=== PATIENT | female | born 1955 | race Two or more races ===

== ENCOUNTER 2018-05-16 10:49 | Inpatient (IN) | payer MEDICARE ==
--- NOTE | 2018-05-16 11:38 | ED Physician Chart ---
ED Chief Complaint/HPI - Patient Information Date Seen:: 05/16/18 Time Seen:: 11:20 Chief Complaint:: right hip and bilateral leg pain History of Present Illness:: Patient's had right hip and bilateral leg pain for several years. Pain is increased the last 3 months. Patient's been using a walker for last 1-1/2 years. No recent trauma patient is legally blind. Patient's on dialysis Oelqnd-Hgpmruabk-Ayrxid at [facility]. Allergies:: Allergies Allergy/AdvReac Type Severity Reaction Status Date / Time No Known Allergies Allergy Verified 05/16/18 11:13 Vitals:: Vital Signs - 8 hr 05/16/18 11:18 Temp 97.4 F HR 83 RR 18 BP 170/71 O2 Sat % 99 Historian:: Patient, Family Member Review:: Nurse's Note Reviewed ED Review of Systems - Review of Systems General/Constitutional: No fever, No chills Skin: No skin lesions Head: No headache Eyes: No loss of vision ENT: No earache Neck: No neck pain, No swelling Cardio Vascular: No chest pain, No palpitations Pulmonary: No SOB, No cough, No sputum GI: No nausea, No vomiting, No diarrhea G/U: No dysuria, No frequency, No hematuria Musculoskeletal: Bone or joint pain Endocrine: No polyuria, No polydipsia Psychiatric: No prior psych history Hematopoietic: No bruising Allergic/Immuno: No urticaria, No angioedema Neurological: No syncope ED Past Medical History - Past Medical History Past Medical History: HTN, DM, Arthritis, Other (diabetic neuropathy; diabetic retinopathy) Family History: Heart disease, Diabetes Melitus, HTN Social History: Non Smoker, No Alcohol Surgical History: other (dialysis shunt; craniotomy secondary to trauma; diabetic retinopathy both eyes) Psychiatricy History: None Medication: Reviewed Family Medical History - Family Member Mother History Unknown: Yes Ethnicity: Living Status: ED Physical Exam - Physical Examination General/Constitutional: Well-developed, well-nourished, Alert, No distress Head: Atraumatic Eyes: Lids, conjuctiva normal Other Eyes comments:: Both eyes status post surgical changes Skin: Nl inspection, No rash, No skin lesions, No ecchymosis ENMT: External ears, nose nl, Nasal exam nl, Lips, teeth, gums nl Neck: No nuchal rigidity Respiratory: Nl effort/Exclusion, Clear to Auscultation, No Wheeze/Rhonchi/Rales Cardio Vascular: RRR, No murmur, gallop, rubs, NL S1 S2 GI: No tenderness/rebounding/guarding, No organomegaly, No hernia, Normal BS's, Nondistended, No mass/bruits : No CVA tenderness Other Extremities comments:: Flexion abduction external rotation right hip causes right groin and right lateral hip pain Neuro/Psych: No focal deficits ED Labs/Radiology/EKG Results - Lab Results Results: Laboratory Results - last 24 hr 05/16/18 05/16/18 11:43 11:43 WBC 6.0 RBC 3.62 L Hgb 11.8 L Hct 36.2 L MCV 99.8 MCH 32.5 H MCHC Differential 32.6 RDW 17.6 Plt Count 123 L MPV 10.7 Neutrophils % 71.8 Lymphocytes % 17.6 L Monocytes % 7.0 Eosinophils % 2.4 Basophils % 1.2 Sodium 133 L Potassium 5.6 H Chloride 98 Carbon Dioxide 27.7 Anion Gap 12.9 BUN 56 H Creatinine 3.6 H Est GFR ( Amer) 16.4 Est GFR (Non-Af Amer) 13.6 BUN/Creatinine Ratio 15.6 Glucose 307 H Calcium 9.3 - Radiology Results Results: Right hip x-ray showed severe arthritis - EKG Interpretations Rate & Rhythm: normal sinus rhythm with a rate of 83 [place]: normal axis Comments:: Flat T-wave in lead aVL ED Septic Shock - . Is Septic Shock (SBP<90, OR Lactate>4 mmol\L) present?: No - <6hrs of presentation: Vital Signs: Vital Signs - 8 hr 05/16/18 11:18 Temp 97.4 F HR 83 RR 18 BP 170/71 O2 Sat % 99 ED Reassessment (Disposition) - Reassessment Reassessment Condition:: Unchanged - Diagnosis Diagnosis:: Intractable pain right hip; arthritis right hip; diabetes; hyperglycemia; diabetic neuropathy; renal failure on dialysis - Patient Disposition Admitted to:: Telemetry Spoke to:: Radu Schmitt Admitting Medical Physician:: Radu Schmitt Condition at Disposition:: Stable, Unchanged
[2018-05-16 11:51] LABS: % BASOPHILS 1.2 % (0.0-2.0); % EOSINOPHILS 2.4 % (0.0-5.0); % LYMPHOCYTES 17.6 % (20.0-50.0); % NEUTROPHILS 71.8 % (40.0-80.0); BASOPHILE ABSOLUTE 0.1 Th/cumm (0-0.2); EOSINOPHILE ABSOLUTE 0.1 Th/cmm (0.1-0.4); HEMATOCRIT 36.2 % (41.0-60); HEMOGLOBIN 11.8 gm/dL (12-16); LYMPHOCYTE ABSOLUTE 1.1 Th/cmm (1.5-3.0); MEAN CELL VOLUME 99.8 fl (81-100); MEAN CORPUSCULAR HEMOGLOBIN 32.5 pg (27.0-31.0); MEAN CORPUSCULAR HGB CONC 32.6 pg (28.0-36.0); MEAN PLATELET VOLUME 10.7 fl; MONOCYTE ABSOLUTE 0.4 Th/cmm (0.3-1.0); NEUTROPHILE ABSOLUTE 4.3 Th/cmm (1.8-8.0); PLATELET COUNT 123 Th/cmm (150-400); RED BLOOD COUNT 3.62 Mil/cmm (3.80-5.10); RED CELL DISTRIBUTION WIDTH 17.6 % (11.5-20.0)
[2018-05-16 12:05] LABS: ANION GAP 12.9 (7.0-16.0); CALCIUM SERUM 9.3 mg/dL (8.6-10.3); CARBON DIOXIDE 27.7 mEq/L (21.0-31.0); CREATININE - SERUM 3.6 mg/dL (0.6-1.2); GFR AFRICAN-AMERICAN 16.4 ml/min (>90); GFR NON AFRICAN-AMERICAN 13.6 ml/min; POTASSIUM SERUM 5.6 mEq/L (3.5-5.1)
--- NOTE | 2018-05-16 12:20 | Diagnostic Imaging Report ---
Exam: Right hip joint. HISTORY: Pain Findings: Multiple views of right hip joint reviewed. The study demonstrates extensive degenerative osteoarthritis of the right hip joint with narrowing of joint space. There is no evidence of fracture dislocation. IMPRESSION: extensive osteoarthritis right hip joint.
[2018-05-16] MEDS ORDERED: Hydrocodone/APAP 5mg/325mg Tab ONE (16:19)
[2018-05-16] MEDS ORDERED: Hydrocodone/APAP 5mg/325mg Tab PO ONE (16:39)
[2018-05-16] MEDS ORDERED: Pneumococcal Vaccine 0.5 mL Vial IM ONE (18:03)
[2018-05-16] MEDS ORDERED: Influenza Vaccine (5 yr & older) 0.5 ml Syr IM ONE (18:03)
[2018-05-16] MEDS: Hydrocodone/APAP 10 mg/325 mg Tab PO PRN (19:40)
[2018-05-16] MEDS: Atorvastatin Calcium 10 MG TAB PO SCH (23:30)
[2018-05-16] MEDS: INSULIN ASPART SLIDING SCALE 100 UNITS/ML UNIT SUBQ SCH (23:31)
[2018-05-17] MEDS: Hydrocodone/APAP 10 mg/325 mg Tab PO PRN ×3 (03:18→21:34)
[2018-05-17 05:35] LABS: % BASOPHILS 0.3 % (0.0-2.0); % EOSINOPHILS 2.9 % (0.0-5.0); % LYMPHOCYTES 26.3 % (20.0-50.0); % MONOCYTES 6.1 % (2.0-10.0); % NEUTROPHILS 64.4 % (40.0-80.0); EOSINOPHILE ABSOLUTE 0.2 Th/cmm (0.1-0.4); HEMATOCRIT 35.8 % (41.0-60); HEMOGLOBIN 11.7 gm/dL (12-16); LYMPHOCYTE ABSOLUTE 1.5 Th/cmm (1.5-3.0); MEAN CELL VOLUME 100.1 fl (81-100); MEAN CORPUSCULAR HEMOGLOBIN 32.6 pg (27.0-31.0); MEAN CORPUSCULAR HGB CONC 32.6 pg (28.0-36.0); MEAN PLATELET VOLUME 10.8 fl; MONOCYTE ABSOLUTE 0.3 Th/cmm (0.3-1.0); NEUTROPHILE ABSOLUTE 3.6 Th/cmm (1.8-8.0); PLATELET COUNT 115 Th/cmm (150-400); RED BLOOD COUNT 3.58 Mil/cmm (3.80-5.10); RED CELL DISTRIBUTION WIDTH 18.4 % (11.5-20.0); WHITE BLOOD COUNT 5.6 Th/cmm (4.8-10.8)
[2018-05-17 06:03] LABS: ALB/GLOB RATIO 1.2 (1.0-1.8); ALBUMIN 3.3 gm/dL (3.7-5.3); ANION GAP 14.2 (7.0-16.0); BILIRUBIN,TOTAL 0.3 mg/dL (0.3-1.0); CALCIUM SERUM 9.1 mg/dL (8.6-10.3); CARBON DIOXIDE 23.1 mEq/L (21.0-31.0); GFR AFRICAN-AMERICAN 13.7 ml/min (>90); GFR NON AFRICAN-AMERICAN 11.4 ml/min; MAGNESIUM 2.2 mg/dL (1.9-2.7); POTASSIUM SERUM 4.3 mEq/L (3.5-5.1); TOTAL PROTEIN,SERUM 6.1 gm/dL (6.0-8.3)
[2018-05-17 06:13] LABS: CREATININE - SERUM 4.2 mg/dL (0.6-1.2)
[2018-05-17] MEDS: INSULIN ASPART SLIDING SCALE 100 UNITS/ML UNIT SUBQ SCH ×4 (06:33→21:34)
--- NOTE | 2018-05-17 20:28 | History & Physical ---
ADMIT DATE: MEDICAL HISTORY AND PHYSICAL PATIENT IDENTIFICATION: A 63-year-old female. CHIEF COMPLAINT: Right hip pain. HISTORY OF PRESENT ILLNESS: A 63-year-old female with history of type 2 diabetes, causing her to have diabetic retinopathy, nephropathy, neuropathy, hypertension, hyperlipidemia, coronary artery disease, history of NH and stroke, currently on hemodialysis for last few years. Recently, he has moved from [place] to [place] getting her dialysis 3 times a week at [facility], brought herself to the Emergency Room for intractable pain on her right hip. After being ordered by Emergency Room MD, the patient was advised to be admitted in the hospital for intractable pain and the patient was also noted to have hyperkalemia. PAST MEDICAL HISTORY: Remarkable for: 1. Diabetes. 2. Hypertension. 3. Hyperlipidemia. 4. Degenerative joint disease. 5. Chronic constipation. 6. Diarrhea. 7. Retinopathy. 8. Nephropathy. 9. Neuropathy. MEDICATIONS AT HOME: Zofran, atorvastatin, gabapentin, insulin, primidone, senna and Topamax. ALLERGIES: The patient is not allergic to medications. SOCIAL HISTORY: The patient lives with the family in [facility]. The patient has no history of smoking cigarette, alcohol, or drug use. FAMILY MEDICAL HISTORY: Remarkable for diabetes, hypertension and coronary artery disease. REVIEW OF SYSTEMS: The patient continues to have pain on her right hip, but denies any headache, denies any chest pain, shortness of breath, palpitation, dizziness, nausea, vomiting, diarrhea, hematuria, hematochezia, or melena. PHYSICAL EXAMINATION: GENERAL: Alert, awake, lying in the bed without any acute distress. VITAL SIGNS: Temperature 97.1, pulse 67, respiratory 18, blood pressure 105/48. HEENT: Normocephalic, atraumatic. Extraocular muscles are intact. Tongue was pink and coated, legally blindness noted. No oral lesions noted, no exudate, no sinus tenderness noted. NECK: Supple, no JVD. No hepatojugular reflex. No lymphadenopathy, thyromegaly, or carotid bruit. HEART: Both heart sounds are regular. No S3, no S4, no murmur. CHEST AND LUNGS: Equal in expansion, no expiratory wheezing. ABDOMEN: Soft. No guarding, no rigidity. Liver and spleen not palpable. No palpable mass. EXTREMITIES: No edema, no cyanosis. Peripheral pulses are +1. No calf tenderness noted. AV graft of the left upper extremity noted. MUSCULOSKELETAL: Remarkable for right hip is significantly tender. Range of motions on the right hip noted. AVAILABLE DIAGNOSTIC DATA: Show a white count of 6.0, hemoglobin 11.8, platelet count of 123. Potassium 5.6, BUN and creatinine is 56 and 3.6, glucose of 307. Hip x-ray remarkable for advanced osteoarthritis, right hip. CLINICAL IMPRESSION: 1. Intractable right hip pain, most likely secondary to advanced osteoarthritis right hip, but in the presence of her multiple medical problems, avascular necrosis of hip needs to ruled out. 2. Hyperkalemia. 3. Diabetes. 4. Hypertension. 5. Hyperlipidemia. 6. Diabetic retinopathy, nephropathy, neuropathy. 7. Degenerative joint disease. 8. Decline in self-care and mobility. PLAN: In the view of her symptoms. The patient has been admitted to the medical floor. We will have orthopedic consultations from Dr. Beltran. We will get the CT scan of the right hip for evaluation of her hip joint. The patient is to have appropriate home medicine reconciliation, put a corrected hyperkalemia. Monitor the blood sugar and blood pressure. Appropriate home medicine reconciliation. General nursing care along with followup on lab and will follow, consult recommendations. I have discussed with the patient's family in length about my clinical impression diagnosis and treatment plan. All questions have been answered. JOB# [id number]
[2018-05-17] MEDS ORDERED: Insulin Detemir 100 units/mL 10mL Vial SUBQ SCH (21:00)
[2018-05-17] MEDS ORDERED: INSULIN GLARGINE HUM REC ANLOG 6 UNIT SUBQ SCH (21:00)
[2018-05-17] MEDS: Atorvastatin Calcium 10 MG TAB PO SCH (21:34)
[2018-05-18] MEDS: Hydrocodone/APAP 10 mg/325 mg Tab PO PRN ×3 (06:10→17:15)
[2018-05-18] MEDS: INSULIN ASPART SLIDING SCALE 100 UNITS/ML UNIT SUBQ SCH ×3 (06:53→16:47)
--- NOTE | 2018-05-18 09:04 | Diagnostic Imaging Report ---
CT pelvis without IV contrast HISTORY: Pelvis and right hip pain COMPARISON: Right hip x-ray on 05/16/2019 Technique: Axial images were obtained from the lower abdomen to the proximal bilateral femurs without IV contrast. Reconstructions were made. total DLP: 297, CTDI8.5 Findings: Moderate stool is seen throughout the colon. Diffuse atherosclerotic vascular disease is noted. Advanced degenerative changes of bilateral hip joints are seen right greater than left with diffuse subchondral cystic changes and and reactive sclerotic changes along the bilateral acetabular regions right greater than left. No evidence of an acute fracture or dislocation. Vasogenic changes of the lower lumbar spine are noted. Degenerative changes of SI joints are also noted with vacuum phenomena. IMPRESSION: No evidence of acute fracture or dislocation. Advanced degenerative changes of bilateral hip joints more pronounced on the right side with advanced joint space loss height seen on the right side with diffuse subchondral cystic changes. Additional degenerative changes lower lumbar spine and SI joints. Atherosclerotic vascular disease.
--- NOTE | 2018-05-18 18:58 | Progress Notes ---
DATE: 05/18/2018 IDENTIFICATION: A 63-year-old female. SUBJECTIVE: The patient seen and examined. The patient is lying in the bed, continues to complain about the pain on her right hip. The patient did have x-rays which showed advanced osteoarthritis, advanced degenerative changes in the bilateral hip joints, more prone on the right with advanced joint space, last height seen on the right side with subchondral cystic changes also noted as well. The patient was also noted to have atherosclerotic changes. The patient did have dialysis yesterday. PHYSICAL EXAMINATION: VITAL SIGNS: Temperature 97.4, pulse 65, respiratory rate 18, blood pressure 137/63. HEENT: No facial asymmetry, legally blindness noted. NECK: Supple, no JVD. HEART: Regular. CHEST: Lung equal in expansion, no expiratory wheezing. ABDOMEN: Soft. EXTREMITIES: No edema. CLINICAL IMPRESSION: 1. Intractable right hip pain secondary to advanced osteoarthritis. Unable to walk. Prior functional prior functional status was walking, needs orthopedic evaluation. 2. End-stage renal disease, on hemolysis. 3. Diabetes mellitus. 4. Hypertension. 5. Degenerative joint disease. 6. Diabetic retinopathy, nephropathy, neuropathy. PLAN: Personally talk to orthopedic surgeon about this patient who will see this patient and plan to have a surgical intervention AMBER. Meanwhile, continue current medication as prescribed and continue to follow current treatment plan and provide general nursing care and nutritional support along with fall precautions. JOB# [id number]
--- NOTE | 2018-05-18 23:55 | Consultation ---
DATE OF CONSULTATION: 05/18/2018 ORTHOPEDIC SURGERY CONSULTATION HISTORY OF PRESENT ILLNESS: The patient is a 63-year-old lady admitted to [facility] on 05/16/2018 because of severe intractable right hip pain and bilateral leg pain. She had x-rays taken and was found to have disease of the right hip. I was called in orthopedic consultation by the admitting physician regarding her right hip. PAST HISTORY: ILLNESSES: Diabetes, hypertension, arthritis, diabetic retinopathy and diabetic neuropathy. She has had surgery on both eyes and stated she is legally blind. FAMILY HISTORY: For diabetes. PRIOR SURGERIES: Eye surgery as above, shunt for renal dialysis, craniotomy for intracranial bleed examination. EXAMINATION: The patient was examined in her hospital room at [facility]. She was having a lot of pain in her right hip, so she was not stood and moved about much further examination. Active motion of the left hip is 20% of normal with severe pain. Passively, I can range the hip to slightly less than 50% causing her severe pain. Left hip and lower extremity unremarkable. Ankles dry. Peripheral pulses are good. 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 There are sclerotic changes in the acetabulum just above the head of the femur presumed to be part of the arthritic process. ORTHOPEDIC DIAGNOSIS: Osteoarthritis, right hip secondary to hip dysplasia. RECOMMENDATIONS: I discussed a hip replacement with the patient, she had been advised of that in the past and wants to have it done in hopes of being relieved of some of her pain. I gave her my card and I would like to follow her in my office and start making arrangements and scheduling her for her hip surgery. Thank you for this interesting referral. JOB# [id number]
--- NOTE | 2018-05-21 03:13 | Discharge Summary ---
DATE OF DISCHARGE: 05/18/2018 PRINCIPAL DIAGNOSES: 1. Intractable right hip pain secondary to advanced osteoarthritis of right hip with dysplasia. 2. End-stage kidney disease on hemodialysis. 3. Diabetes mellitus. 4. Diabetic retinopathy, nephropathy, neuropathy. 5. Degenerative joint disease. 6. Chronic constipation. 7. Hyperkalemia. 8. Decline in self-care and mobility. BRIEF STATEMENT FOR THE REASON FOR ADMISSION: The patient presented to Emergency Room from dialysis unit for evaluation of intractable pain on her right hip. The patient was worked up in the Emergency Room and noted to have hyperkalemia and significant arthritis of the right hip, and the patient was advised to be admitted considering the patient was ambulatory and now the patient is no longer walking. Please refer to my H and P for further information. HOSPITAL COURSE: The patient was admitted to telemetry even in the view of her hyperkalemia. Hyperkalemia was corrected. Orthopedics consultation was requested. Appropriate home medicines were reconciled as well. Dialysis was initiated as well. The patient was seen by Dr. Beltran and suggested that the patient should have hip replacement on later date. After talking to the patient and her daughter, the patient was discharged to home with pain medications to be continued and have followup with Dr. Beltran in his office next week as well as in my office in 1-2 weeks. The patient should continue to get her dialysis as scheduled. At the time of discharge, all of her medications were reconciled. JOB# [id number]
== END 2018-05-18 17:25 | disposition home or self-care (01) | DRG 553 ==
LOC: ER 10:49 → TELE 15:45
PROVIDERS: ADMIT Internal Medicine; ATTEND Internal Medicine
PROC: 5A1D70Z Performance of Urinary Filtration, Intermittent, Less than 6 Hours Per Day (ICD-10-PCS; principal; 2018-05-17)
DX: M16.11 Unilateral primary osteoarthritis, right hip (principal); N18.6 End stage renal disease; I12.0 Hypertensive chronic kidney disease with stage 5 chronic kidney disease or end stage renal disease; H54.8 Legal blindness, as defined in USA; E11.22 Type 2 diabetes mellitus with diabetic chronic kidney disease; E11.40 Type 2 diabetes mellitus with diabetic neuropathy, unspecified; E11.319 Type 2 diabetes mellitus with unspecified diabetic retinopathy without macular edema; E11.65 Type 2 diabetes mellitus with hyperglycemia; E11.21 Type 2 diabetes mellitus with diabetic nephropathy; E78.5 Hyperlipidemia, unspecified; I25.10 Atherosclerotic heart disease of native coronary artery without angina pectoris; I25.2 Old myocardial infarction; K59.09 Other constipation; Z82.49 Family history of ischemic heart disease and other diseases of the circulatory system; Z83.3 Family history of diabetes mellitus; Z86.73 Personal history of transient ischemic attack (TIA), and cerebral infarction without residual deficits; Z99.2 Dependence on renal dialysis; E87.5 Hyperkalemia
CPT/HCPCS: 36415-UA; 72192-TC; 73501; 7610; 80048-TC; 80053-TC; 82948-90; 83036-90; 83735-TC; 85025-TC; 93005; J1815; Z7610